=== PATIENT | male | born 1990 | race Caucasian/White ===

== ENCOUNTER 2017-01-09 08:53 | Emergency (ER) | payer OTHER, SELFPAY ==
[2017-01-09] MEDS ORDERED: Ondansetron HCl/PF 4 MG/2 ML Vial ONE (09:22)
[2017-01-09] MEDS ORDERED: ceFAZolin Sodium 1 GM VIAL ONE (09:23)
[2017-01-09] MEDS ORDERED: Sodium Chloride 0.9% 100 ML ONE (09:24)
[2017-01-09 09:48] LABS: Acetaminophen Less than 6.0 mcg/mL (10.0-30.0); Salicylate Less than 8.0 mg/dL (15.0-30.0)
--- NOTE | 2017-01-09 09:53 | RAD ---
RIGHT FOOT THREE VIEWS: History: Injury. Right foot pain. FINDINGS: There is a fracture involving the shaft of the middle phalanx of the great toe without significant d isplacement. POS: [facility]
[2017-01-09] MEDS ORDERED: Adacel (T-DAP) 0.5 ML VIAL ONE (10:29)
[2017-01-09] MEDS ORDERED: Lidocaine 1% w/Epinephrine 1:200K 30 ML VIAL ONE (10:34)
[2017-01-09] MEDS ORDERED: Bacitracin Zinc 1 Packet ONE (10:53)
[2017-01-09 11:59] LABS: Amphetamine Detected (NotDetected); Methadone Not Detected (NotDetected); Methamphetamine Not Detected (NotDetected)
== END 2017-01-09 11:47 | disposition home or self-care (01) ==
LOC: ERS 08:53
DX: S92.521B Displaced fracture of middle phalanx of right lesser toe(s), initial encounter for open fracture (principal); S90.211A Contusion of right great toe with damage to nail, initial encounter; W20.8XXA Other cause of strike by thrown, projected or falling object, initial encounter; Y99.0 Civilian activity done for income or pay
CPT/HCPCS: 11730; 80306; 80307; 90471; 90715; 96365; 96375; 96376; J0690; J2270; J2405; J7050

== ENCOUNTER 2019-06-06 15:44 | Emergency (ER) | payer OTHER, SELFPAY ==
[2019-06-06] MEDS ORDERED: Adacel (T-DAP) 0.5 ML SYRINGE ONE (15:59)
[2019-06-06] MEDS ORDERED: Lidocaine 1% (PF) 30 ML VIAL ONE (15:59)
[2019-06-06] MEDS ORDERED: Bupivacaine 0.25% 10 ML VIAL ONE (15:59)
[2019-06-06] MEDS ORDERED: Bacitracin 1 PK ONE (16:48)
== END 2019-06-06 17:06 | disposition home or self-care (01) ==
LOC: ERS 15:44
DX: S61.215A Laceration without foreign body of left ring finger without damage to nail, initial encounter (principal); F17.200 Nicotine dependence, unspecified, uncomplicated; Z23 Encounter for immunization; W26.0XXA Contact with knife, initial encounter
CPT/HCPCS: 12002; 90471; 90715; J2001; S0020